=== PATIENT | female | born 1970 | race Two or more races ===

== ENCOUNTER 2020-01-26 02:00 | Emergency (ER) | payer MEDICAID ==
[~2020-01-26] VITALS: Ht 167.6 cm; Wt 77.1 kg
--- NOTE | 2020-01-26 02:03 | NUR ---
Patient arrived via [facility] for complaints of intermittent chest pain, no complaints of chest pain upon arrival, EKG results given to MD (NSR), left AC 18g saline locked IV noted, Vitals: 157/93, 100% on room air, 17 respirations, 82 HR, one dose of 0.4 Nitroquick given by [facility]
[2020-01-26] MEDS ORDERED: ASPIRIN 81 MG TAB.CHEW PO ONE (02:15)
[2020-01-26] MEDS ORDERED: NITROGLYCERIN OINT 1 GM PACKET TP ONE ×2 (02:15→02:20)
[2020-01-26] MEDS ORDERED: ACETAMINOPHEN ES 500 MG TABLET PO ONE ×2 (02:15→06:15)
--- NOTE | 2020-01-26 02:17 | NUR ---
[facility] gave 324 mg of aspirin prior to patient arrival to Emergency room
[2020-01-26] MEDS ORDERED: ACETAMINOPHEN ES 500 MG TABLET ONE ×2 (02:20→06:05)
[2020-01-26 02:23] LABS: BASOPHILS # (AUTO) 0.1 K/uL (0.0-8.0); BASOPHILS % (AUTO) 0.9 % (0.0-2.0); EOSINOPHILS # (AUTO) 0.3 K/uL (0.0-0.7); EOSINOPHILS % (AUTO) 2.2 % (0.0-7.0); HEMOGLOBIN 13.4 g/dL (10.9-14.3); LYMPHOCYTES # (AUTO) 3.2 K/uL (20.0-40.0); LYMPHOCYTES % (AUTO) 27.4 % (20.5-51.5); MEAN CORPUSCULAR HGB CONC 33 g/dL (32.3-35.6); MEAN CORPUSCULAR VOLUME 88.3 fL (75.5-95.3); MONOCYTES # (AUTO) 0.8 K/uL (2.0-10.0); NEUTROPHILS # (AUTO) 7.3 K/uL (1.8-8.9); NEUTROPHILS % (AUTO) 62.5 % (38.5-71.5); PLATELET COUNT (AUTO) 322 K/uL (179-408); RED BLOOD CELL COUNT(AUTO) 4.64 MIL/uL (3.63-4.92); WHITE BLOOD COUNT (AUTO) 11.7 K/uL (3.8-11.8)
--- NOTE | 2020-01-26 02:24 | NUR ---
Nitro paste placed on left chest wall
[2020-01-26 02:27] LABS: CREATININE 0.8 mg/dL (0.6-1.3); POTASSIUM 3.8 mmol/L (3.5-5.1)
[2020-01-26 02:40] LABS: BILIRUBIN,DIRECT 0.1 mg/dL (0.0-0.2); BILIRUBIN,TOTAL 0.4 mg/dL (0.2-1.0); TOTAL PROTEIN, SERUM 7.1 g/dL (6.4-8.2)
--- NOTE | 2020-01-26 03:02 | NUR ---
PAtient noted resting in bed with eyes closed, no complaints of pain, no signs of distress noted
--- NOTE | 2020-01-26 03:07 | NUR ---
Ultra sound in the room at this time
--- NOTE | 2020-01-26 04:45 | NUR ---
Patient continues to rest with eyes closed, no complaints of pain, no signs of distress, vitals within mormal limits
--- NOTE | 2020-01-26 06:00 | NUR ---
IV removed at this time, tylenol given for mild headache, no distress noted, electrical assemblies supervisor informed that patient needs a taxi voucher to return home.
--- NOTE | 2020-01-26 06:38 | NUR ---
Patient discharged to home in stable condition. Ambulated with steady gait to taxi. Given taxi voucher. Written and verbal after care instructions given. Instructed to follow up with valve fitter. Patient verbalizes understanding of instructions. Stressed follow up or return to ER for worsening s/s.
[2020-01-26 06:44] VITALS: BP 124/71
== END 2020-01-26 06:38 | disposition home or self-care (01) ==
LOC: ER 02:03
DX: R07.9 Chest pain, unspecified (principal); R00.2 Palpitations; R60.0 Localized edema; R06.00 Dyspnea, unspecified; F17.210 Nicotine dependence, cigarettes, uncomplicated
CPT/HCPCS: 36415; 70030-TC; 71045; 85025; 85730; 93005; A4663; A9150

== ENCOUNTER 2021-08-17 11:54 | Emergency (ER) | payer MEDICAID ==
[~2021-08-17] VITALS: Ht 167.6 cm; Wt 74.8 kg
[2021-08-17] MEDS ORDERED: FURO40TA5 PO (12:14)
[2021-08-17] MEDS ORDERED: PHEN100C4 PO (12:14)
--- NOTE | 2021-08-17 12:43 | NUR ---
at bedside to examine pt.
[2021-08-17] MEDS ORDERED: KETOROLAC TROMETHAMINE 15 MG INJ ONE (13:03)
[2021-08-17] MEDS ORDERED: METOCLOPRAMIDE HCL 10 MG/2 ML VIAL ONE (13:04)
--- NOTE | 2021-08-17 13:08 | NUR ---
resident is taken down for CT,.
[2021-08-17] MEDS: METOCLOPRAMIDE HCL 10 MG/2 ML VIAL IV ONE (13:09)
[2021-08-17] MEDS: KETOROLAC TROMETHAMINE 15 MG INJ IVP ONE (13:11)
--- NOTE | 2021-08-17 13:34 | NUR ---
Pt. back from CT.
[2021-08-17 13:52] LABS: HEMATOCRIT 42.3 % (31.2-41.9); MEAN CORPUSCULAR HEMOGLOBIN 29.6 uug (24.7-32.8); MEAN CORPUSCULAR VOLUME 87.9 fL (75.5-95.3); PLATELET COUNT (AUTO) 333 K/uL (179-408)
[2021-08-17 13:58] LABS: CARBON DIOXIDE 27 mmol/L (21-32); CHLORIDE 105 mmol/L (98-107); CREATININE 0.9 mg/dL (0.6-1.3); GLUCOSE 90 mg/dL (74-106); POTASSIUM 4.2 mmol/L (3.5-5.1); UREA NITROGEN, BLOOD 19 mg/dL (7-18)
[2021-08-17 14:12] LABS: ALANINE AMINOTRANSFERASE 30 U/L (14-59); ALKALINE PHOSPHATASE 92 U/L (50-136); ASPARTATE AMINOTRANSFERASE 14 U/L (15-37); BILIRUBIN,DIRECT 0.1 mg/dL (0.0-0.2); BILIRUBIN,TOTAL 0.2 mg/dL (0.2-1.0); LIPASE 153 U/L (73-393); TOTAL PROTEIN, SERUM 7.2 g/dL (6.4-8.2)
[2021-08-17 15:17] LABS: *BILIRUBIN,URIN NEGATIVE (NEGATIVE); *BLOOD, URINE NEGATIVE (NEGATIVE); *CLARITY,URINE CLEAR (CLEAR); *COLOR,URINE YELLOW (YELLOW); *KETONES,URINE NEGATIVE (NEGATIVE); *UROBILINOGEN,URINE 0.2 E.U./dl (NORMAL); LEUKOCYTE ESTERASE ,URINE NEGATIVE (NEGATIVE); NITRITE, URINE NEGATIVE (NEGATIVE); UGLUCOSE NEGATIVE (NEGATIVE)
[2021-08-17] MEDS ORDERED: HYDR-3972 PO (15:44)
[2021-08-17] MEDS ORDERED: IBUP-1957 PO (15:44)
--- NOTE | 2021-08-17 17:25 | NUR ---
patient resting well, denies pain with even unlabored respiration, v/s 111/65 p-64 [id number] , O2 sat 99% room air
--- NOTE | 2021-08-17 17:50 | NUR ---
patient is awake [id number].
--- NOTE | 2021-08-17 18:47 | NUR ---
patient remains sleeping easily arousable. HR of 77, saturation of 100% on RA. sbp of 131/79.
--- NOTE | 2021-08-17 19:20 | NUR ---
report given to rn. Varma.
--- NOTE | 2021-08-17 20:18 | NUR ---
Pt resting comfortably in bed at this time.
[2021-08-18] MEDS ORDERED: IBUP-1955 PO (01:19)
[2021-08-18] MEDS ORDERED: HYDR-4209 PO (01:19)
--- NOTE | 2021-08-18 01:35 | NUR ---
Patient discharged to home in stable condition. Written and verbal after care instructions given. Patient verbalizes understanding of instructions. Stressed follow up or return to ER for worsening s/s. Denies pain or SOB at this time. No changes in LOC for duration of visit. Pt able to ambulate with steady gait.
[2021-08-18 01:36] VITALS: BP 104/67
== END 2021-08-18 02:15 | disposition home or self-care (01) ==
LOC: ER 11:54
DX: R10.12 Left upper quadrant pain (principal); M54.9 Dorsalgia, unspecified; K42.9 Umbilical hernia without obstruction or gangrene; K57.90 Diverticulosis of intestine, part unspecified, without perforation or abscess without bleeding; Z86.718 Personal history of other venous thrombosis and embolism; Z79.01 Long term (current) use of anticoagulants; G40.909 Epilepsy, unspecified, not intractable, without status epilepticus; Z79.899 Other long term (current) drug therapy; F17.200 Nicotine dependence, unspecified, uncomplicated; R00.1 Bradycardia, unspecified
CPT/HCPCS: 36415; 71045; 74176; 80048; 80076; 81003; 83690; 84484 ×2; 84702; 85025; 93005; 96374; 96375; 99285; J1885; J2765; A4663